=== PATIENT | male | born 1995 | race Caucasian/White ===

== ENCOUNTER 2021-02-21 08:57 | Day surgery (SDC) | payer BC ==
[~2021-02-21 08:57] MED LIST: Acetaminophen 500 MG TAB PO PRN; Vedolizumab 300 MG in Sodium Chloride 0.9% 250 ML 250 ML IVPB SCH; diphenhydrAMINE 50 MG/ML VIAL IVP PRN
[2021-02-21] MEDS ORDERED: Sodium Chloride 0.9% 20 ML ONE (09:16)
[2021-02-21 09:50] VITALS: BP 119/69
== END 2021-02-21 11:10 | disposition home or self-care (01) ==
LOC: ONC/OP 08:57
PROVIDERS: ATTEND Internal Medicine Gastroenterology
DX: K50.90 Crohn's disease, unspecified, without complications (principal)
CPT/HCPCS: 96413; J3380; J7050

== ENCOUNTER 2021-04-25 08:26 | Day surgery (SDC) | payer BC ==
[2021-04-25] MEDS ORDERED: Sodium Chloride 0.9% 20 ML ONE (08:33)
[2021-04-25 08:46] VITALS: BP 126/74; TEMP 97.7
== END 2021-04-25 10:59 | disposition home or self-care (01) ==
LOC: ONC/OP 08:26
PROVIDERS: ATTEND Internal Medicine Gastroenterology
DX: K50.90 Crohn's disease, unspecified, without complications (principal)
CPT/HCPCS: 96413; J3380; J7050

== ENCOUNTER 2021-06-20 08:24 | Day surgery (SDC) | payer BC ==
[2021-06-20] MEDS ORDERED: Sodium Chloride 0.9% 10 ML ONE ×2 (08:40)
[2021-06-20 09:08] VITALS: BP 123/58; TEMP 97.6
== END 2021-06-20 17:35 | disposition home or self-care (01) ==
LOC: ONC/OP 08:24
PROVIDERS: ATTEND Internal Medicine Gastroenterology
DX: K50.90 Crohn's disease, unspecified, without complications (principal)
CPT/HCPCS: 96413; 96415; J3380; J7050

== ENCOUNTER 2024-04-05 07:56 | Outpatient (CLI) | payer BC | END 2024-04-05 07:57 | disposition home or self-care (01) | LOC: SCSMRI 07:56 | PROVIDERS: ATTEND Family Medicine Sports Medicine | DX: M51.369 Other intervertebral disc degeneration, lumbar region without mention of lumbar back pain or lower extremity pain (principal); M51.379 Other intervertebral disc degeneration, lumbosacral region without mention of lumbar back pain or lower extremity pain; M51.27 Other intervertebral disc displacement, lumbosacral region | CPT/HCPCS: 72148 ==